=== PATIENT | female | born 1960 | race African-American/Black ===

== ENCOUNTER 2020-06-09 13:27 | Emergency (ER) | payer OTHER ==
[~2020-06-09] VITALS: Ht 167.6 cm; Wt 72.6 kg
[~2020-06-09 13:27] MED LIST: ALEVE220 M1 PO; ASPIRIN325; PRINZIDE 20-121 EACH PO
[2020-06-09 13:54] LABS: URINE BILIRUBIN NEGATIVE (Negative); URINE BLOOD TRACE (Negative); URINE CLARITY CLEAR; URINE COLOR YELLOW; URINE GLUCOSE-RANDOM* NEGATIVE (Negative); URINE KETONES TRACE (Negative); URINE LEUKOCYTES-REFLEX 1+ (Negative); URINE NITRITE-REFLEX NEGATIVE (Negative); URINE PROTEIN (DIPSTICK) NEGATIVE (Negative); URINE UROBILINOGEN 0.2 E.U./dl (0.2-1.0)
[2020-06-09 14:05] LABS: CASTS None Seen /LPF (None Seen); CRYSTALS None Seen /LPF (None Seen); SQUAMOUS 0-3 Few /LPF (0-3)
[2020-06-09 14:06] LABS: BACTERIA-REFLEX 1-9 Few /HPF (None Seen)
[2020-06-09 14:07] LABS: URINE RBC 0-2 Rare /HPF (0-2); URINE WBC-REFLEX 0-5 Rare /HPF (0-5)
[2020-06-09 14:09] LABS: BASOPHILS 0.7 % (0.0-2.0); EOSINOPHILS 0.3 % (0.0-3.0); HEMATOCRIT 44.9 % (37.0-47.0); HEMOGLOBIN 15.3 gm/dL (12.0-15.0); LYMPHOCYTES 31.3 % (24.0-44.0); MCH 31.3 pg (26.0-34.0); MCHC 34.1 g/dL (28.0-37.0); MCV 91.9 fL (80.0-100.0); MONOCYTES 14.4 % (1.0-8.0); PLATELET COUNT 338 thou/uL (150-400); POLYS 53.3 % (36.0-66.0); RBC 4.89 mil/uL (4.20-5.00); RDW 13.1 % (10.5-14.5); WBC 7.6 thou/uL (4.0-11.0)
[2020-06-09 14:17] LABS: ANION GAP 12 mmol/L (7-16); BUN 27 mg/dL (7-18); CALCIUM 9.8 mg/dL (8.5-10.1); CHLORIDE 96 mmol/L (98-107); CO2 27 mmol/L (21-32); CREATININE 1.5 mg/dL (0.6-1.0); GLUCOSE 112 mg/dL (74-106); POTASSIUM 3.3 mmol/L (3.5-5.1); SODIUM 135 mmol/L (136-145)
[2020-06-09 14:27] LABS: ALBUMIN 4.5 g/dL (3.4-5.0); LIPASE 85 U/L (73-393); SGOT 19 U/L (15-37); SGPT 28 U/L (14-59); TOTAL BILIRUBIN 0.8 mg/dL (0.2-1.0); TOTAL PROTEIN 9.2 g/dL (6.4-8.2); TROPONIN-I <0.06 ng/mL (<0.06)
[2020-06-09] MEDS ORDERED: ONDANSETRON HCL4 M2 PO (15:21)
[2020-06-09] MEDS ORDERED: CARAFATE 1 GM TA1 G1 PO (15:21)
[2020-06-09] MEDS ORDERED: OMEPRAZOLE 20 M20 M1 PO (15:21)
[2020-06-09] MEDS ORDERED: ULTRAM 50MG TAB50 MG PO (15:22)
[2020-06-09 16:15] VITALS: BP 123/74
--- NOTE | 2020-06-09 16:35 | EKG ---
[facility] [address] [place] [address] ELECTROCARDIOGRAM REPORT Name: SHAHRIAR ROPER [id number] Admission: 06/09/20 Attend Phys: Discharge: 06/09/20 Date of : 58 Report #: [id number] [facility] ED Test Date: 2020-06-09 Test Time: 13:36:31 Pat Name: SHAHRIAR ROPER Department: Room: Gender: [employer]: ADAMA : 1960 Requested By: Chinmay Merida Order Number: [id number] MD: Brandon Miller Measurements Intervals [place] Rate: 84 P: 10 [place]: 148 QRS: 27 QRSD: 88 T: 42 QT: 366 QTc: 433 Interpretive Statements Sinus rhythm Consider left ventricular hypertrophy Compared to ECG 11/16/2010 06:58:30 No significant changes Electronically Signed On 06-09-2020 16:35:05 CDT by Brandon Miller [email or web address] <ELECTRONICALLY SIGNED> By: Brandon Miller MD, [facility] 06/09/20 [id number] [id number] Brandon Miller MD, FACC /EPI
== END 2020-06-09 16:15 | disposition home or self-care (01) ==
LOC: ER 13:27
PROVIDERS: Physician Assistant
DX: K29.70 Gastritis, unspecified, without bleeding (principal); I10 Essential (primary) hypertension; Z79.899 Other long term (current) drug therapy; Z79.82 Long term (current) use of aspirin; Z88.8 Allergy status to other drugs, medicaments and biological substances